=== PATIENT | male | born 1950 | race Caucasian/White ===

== ENCOUNTER 2021-06-02 11:00 | Outpatient (CLI) | payer MEDICARE ==
[2021-06-02 17:24] LABS: SARS-CoV-2 PCR by NAA Not Detected (NotDetected)
== END 2021-06-02 11:01 | disposition home or self-care (01) ==
LOC: CSHLAB 11:00
PROVIDERS: ATTEND Internal Medicine Pulmonary Disease
DX: Z01.812 Encounter for preprocedural laboratory examination (principal); Z20.822 Contact with and (suspected) exposure to COVID-19
CPT/HCPCS: U0003; U0005